=== PATIENT | male | born 1995 | race Two or more races ===

== ENCOUNTER 2018-12-23 19:17 | Emergency (ER) | payer OTHER ==
[~2018-12-23] VITALS: Ht 175.3 cm; Wt 93.0 kg
[2018-12-23 19:20] VITALS: BP 128/80
== END 2018-12-23 20:16 | disposition home or self-care (01) ==
LOC: ED 19:49
DX: K08.89 Other specified disorders of teeth and supporting structures (principal); F17.200 Nicotine dependence, unspecified, uncomplicated
CPT/HCPCS: 99283